=== PATIENT | female | born 1945 | race Caucasian/White ===

== ENCOUNTER 2024-07-28 11:00 | Outpatient (REF) | payer MEDICARE, SELFPAY ==
[2024-07-28 14:39] LABS: D Dimer High Sensitivity 297 NG/ML
[2024-08-02 21:53] LABS: NT-proBNP <36 pg/mL (<450)
== END 2024-07-28 11:01 | disposition home or self-care (01) ==
LOC: HO.WFDLDS 11:00
PROVIDERS: Visit Provider Internal Medicine
DX: M54.9 Dorsalgia, unspecified (principal); R05.9 Cough, unspecified; R06.00 Dyspnea, unspecified
CPT/HCPCS: 36415; 83880; 85379